=== PATIENT | female | born 1975 | race Caucasian/White ===

== ENCOUNTER 2016-11-08 10:29 | Outpatient (CLI) | payer OTHER ==
--- NOTE | 2016-11-08 19:41 | DIAGNOSTIC IMAGING REPORT ---
REFERRING PHYSICIAN/PROVIDER: [facility] [employer] DRAWING OPERATOR: Fariba Weiss MD PROCEDURE: Echocardiogram TECHNICAL QUALITY: fair INDICATION: CARDIOMYOPATHY Normal sinus rhythm. Normal LV size, wall thickness, wall motion and LV systolic function. EF is 60-65%. No valvular abnormalities. No prior study available for comparison. Procedure: The patient was in normal sinus rhythm during the exam. Left Ventricle: The left ventricle is normal in size. Left ventricular wall thickness is normal. The ejection fraction is estimated to be 60-65%. Left ventricular wall motion is normal. Atria: The left atrial size is normal. Mitral Valve: The mitral valve leaflets appear normal. There is no evidence of stenosis, fluttering, or prolapse. Aortic Valve: There has been no significant change since the previous study. Tricuspid Valve: The tricuspid valve is not well visualized. Great Vessels: The aortic root is normal size. Pericardium/ Pleura There is no pericardial effusion. There is no pleural effusion.
--- NOTE | 2016-11-08 19:41 | DIAGNOSTIC IMAGING REPORT ---
REFERRING PHYSICIAN/PROVIDER: [facility] [employer] ARCHITECT: Fariba Weiss MD PROCEDURE: Echocardiogram TECHNICAL QUALITY: fair INDICATION: CARDIOMYOPATHY Normal sinus rhythm. Normal LV size, wall thickness, wall motion and LV systolic function. EF is 60-65%. No valvular abnormalities. No prior study available for comparison. Procedure: The patient was in normal sinus rhythm during the exam. Left Ventricle: The left ventricle is normal in size. Left ventricular wall thickness is normal. The ejection fraction is estimated to be 60-65%. Left ventricular wall motion is normal. Atria: The left atrial size is normal. Mitral Valve: The mitral valve leaflets appear normal. There is no evidence of stenosis, fluttering, or prolapse. Aortic Valve: There has been no significant change since the previous study. Tricuspid Valve: The tricuspid valve is not well visualized. Great Vessels: The aortic root is normal size. Pericardium/ Pleura There is no pericardial effusion. There is no pleural effusion.
== END 2016-11-08 23:00 ==
LOC: US SRH 10:29
DX: I42.9 Cardiomyopathy, unspecified (principal)